=== PATIENT | male | born 1945 | race Caucasian/White ===

== ENCOUNTER → 2021-01-04 | Day surgery (SDC) | payer SELFPAY ==
[~2021-01-04] MED LIST: OR PHACO EYE KIT ONE; PREOP PHACO EYE KIT ONE
[2021-01-04 10:53] VITALS: BP 129/84
== END | disposition home or self-care (01) ==
LOC: OR 08:18
PROVIDERS: ATTEND Ophthalmology
DX: H25.11 Age-related nuclear cataract, right eye (principal); E66.9 Obesity, unspecified; Z01.812 Encounter for preprocedural laboratory examination; Z20.822 Contact with and (suspected) exposure to COVID-19; Z68.37 Body mass index [BMI] 37.0-37.9, adult; Z87.891 Personal history of nicotine dependence
CPT/HCPCS: 66984; U0002; V2788

== ENCOUNTER → 2021-01-25 | Day surgery (SDC) | payer SELFPAY ==
[~2021-01-25] MED LIST changes: +FENTANYL CITRATE/PF 100MCG/2 ML INJ ONE; +MIDAZOLAM HCL 5 MG/ML VIAL ONE
[2021-01-25 15:25] VITALS: BP 165/82
== END | disposition home or self-care (01) ==
LOC: OR 12:01
PROVIDERS: ATTEND Ophthalmology
DX: H25.12 Age-related nuclear cataract, left eye (principal); E66.9 Obesity, unspecified; Z01.812 Encounter for preprocedural laboratory examination; Z20.822 Contact with and (suspected) exposure to COVID-19; Z68.37 Body mass index [BMI] 37.0-37.9, adult
CPT/HCPCS: 66984; J2250; J3010; U0002